=== PATIENT | female | born 1975 | race Caucasian/White ===

== ENCOUNTER 2017-02-21 08:51 | Day surgery (SDC) | payer BC ==
--- NOTE | 2017-02-05 07:40 | HP ---
CC: Dr. Muhammad * PREOPERATIVE HISTORY AND PHYSICAL: DATE OF ADMISSION: 02/18/17 This patient is scheduled for same-day surgery admission by Dr. Laguna on 02/18/17. DATE OF PREOPERATIVE HISTORY AND PHYSICAL EXAMINATION: 02/04/17 ATTENDING SURGEON: Antonio Laguna MD * (dictated by Sabrina Guy NP). CHIEF COMPLAINT: Umbilical hernia. CHIEF COMPLAINT: The patient is a 41-year-old female known to Dr. Laguna for a small umbilical hernia. Dr. Laguna saw her almost a year ago and at that time she wanted to delay surgery. She returns stating that it is now causing more discomfort and she has had to reduce the hernia at times and would like to proceed with surgical intervention. She denies any signs or symptoms to suggest incarceration or strangulation. She does suffer from chronic constipation and plans to use Colace in the perioperative period. Dr. Laguna has recommended open umbilical hernia repair with mesh as a same-day surgery procedure and has described the nature of the procedure, the rationale for the procedure, the relevant risks and benefits, and today I reviewed the typical postoperative care and recovery. The patient has had a chance to ask questions and stated that she understands the information and is satisfied with the answers given to her questions. She will sign surgical consent on the day of surgery. Her previous abdominal surgery was laparoscopic cholecystectomy in 2008. PAST MEDICAL HISTORY: Acute thyroiditis 2011 and reports that she is currently being worked up for ongoing thyroid problems and is scheduled for an ultrasound of thyroid gland tomorrow. Migraine headaches without aura. PAST SURGICAL HISTORY: Laparoscopic cholecystectomy 2008. OBSTETRIC HISTORY: 4, para 2, 2. She is up-to-date with breast exam, mammogram, pelvic, and Pap smear within the last year. Last menstrual period started 01/24/17. She is not using any type of contraception. MEDICATIONS: 1. Vitamin D3 supplement. 2. Multivitamin daily. 3. Ibuprofen as needed. ALLERGIES: No known drug allergies. FAMILY HISTORY: No known anesthesia complications, bleeding tendencies or clotting disorders. 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 She smokes 10 or fewer cigarettes per day. She rarely drinks alcohol and denies the use of other substances. REVIEW OF SYSTEMS: She denies any fevers, chills, excessive fatigue, or weight loss. Endocrine: No diabetes and is currently being worked up for thyroid symptoms. Hematologic: No easy bruising or bleeding. No history of blood transfusions. Respiratory: She is a smoker and has a dry cough and occasional wheezing. No recent upper respiratory infections. Cardiovascular: No anginal chest pain or palpitations. Gastrointestinal: No nausea or vomiting or diarrhea. She reports chronic constipation. Genitourinary: No dysuria. Musculoskeletal: No complaints of joint or back pain. Neurologic: History of migraine headaches. General: No history of deep vein thrombosis or pulmonary embolism. No previous anesthesia complications. PHYSICAL EXAMINATION GENERAL SURVEY: The patient is a 41-year-old overweight female, well developed , in no acute distress. VITAL SIGNS: Height 62 inches, weight 166 pounds, body mass index 30. Blood pressure 112/82, pulse 66 and regular, respiratory rate 16, and temperature 97.4 tympanic. HEENT: Benign. NECK: Supple. No cervical lymphadenopathy. Thyroid is palpable and somewhat enlarged. No obvious nodules. BACK: No CVA tenderness. LUNGS: Breath sounds bilaterally clear and equal. HEART: Regular rate and rhythm. No murmurs or rubs appreciated. ABDOMEN: Well healed surgical scars. Active bowel sounds. Soft, nontender throughout, nondistended. At the umbilicus, there is a small fascial defect approximately 1.5 cm in diameter with a fat containing hernia that is reducible , but mildly tender. No other obvious masses or organomegaly. PELVIC AND RECTAL EXAMS: Done within the past year, not repeated. EXTREMITIES: Warm without edema or skin ulceration. NEUROLOGIC: Alert and oriented x3. Steady gait. SKIN: Warm, dry, and intact. IMPRESSION: Umbilical hernia. PLAN: Same-day surgery admission to Dr. Laguna's service on 02/18/17 , for open umbilical hernia repair with mesh. GIORGI GUY, FLORES [id number]/[facility] #: [id number] MTDMarni
[~2017-02-21 08:51] MED LIST: Buffered Lidocaine 0.9% SYRIN* 5 ML/SYR SYRINGE INTRADERM ONE
[2017-02-21] MEDS ORDERED: Buffered Lidocaine 0.9% SYRIN* 5 ML/SYR SYRINGE ONE (08:59)
[2017-02-21] MEDS ORDERED: ceFAZolin 2 GM PREMIX (*) 2 GM/50 ML BAG IVPB ONE (09:54)
[2017-02-21] MEDS ORDERED: Bupivacaine 0.25% SDV* 30 ML ONE (09:56)
[2017-02-21] MEDS ORDERED: Lidocaine 1.5% EPI 1:200,000* 30 ML SDV ONE (09:56)
[2017-02-21] MEDS ORDERED: Midazolam* 1 MG/ML 2 ML VIAL (2 MG) ONE (10:09)
[2017-02-21] MEDS ORDERED: fentaNYL* 50 MCG/ML 2 ML VIAL (100 MCG VIAL) ONE (10:09)
[2017-02-21] MEDS ORDERED: Propofol* 10 MG/ML 20 ML BTL IV PUSH ONE (10:15)
[2017-02-21 12:28] VITALS: BP 106/92
--- NOTE | 2017-02-22 01:07 | OP ---
CC: Dr. Amador Kaur; Dr. Muhammad OPERATIVE REPORT: DATE OF OPERATION: 02/21/17 DATE OF : 75 SURGEON: Amador Kaur MD TRANSPORTATION MECHANIC: None ANESTHESIOLOGIST: Dr. Gomez. ANESTHESIA: LMAC anesthesia. PRE-OP DIAGNOSIS: Umbilical hernia. POST-OP DIAGNOSIS: Umbilical hernia. OPERATIVE PROCEDURE: Open umbilical hernia repair with mesh. DESCRIPTION OF PROCEDURE: The patient was supine on the operating room table. After adequate intrave nous sedation, compression stocking, Atul-Hugger warmer, and intravenous antibiotics, the abdomen was prepped with antiseptic and draped in a sterile fashion. A small supraumbilical incision was create d and hernia was identified. There was actually a hernia that was probably related to the previous l aparoscopic case that was just above the umbilicus and then there was a separate umbilical defect, th edwin were less than 0.5 cm apart. Both of them were reduced and the preperitoneal plane was developed and a 4.3 cm underlay patch was parachuted down underneath. It was secured at 4 quadrants and the f ascia was closed over top using 0 Vicryl. The umbilical skin was tacked back down, adipose was appro ximated with 3-0 Vicryl and skin with 5-0 Vicryl followed by Steri-Strips. She tolerated the procedu re well, was awakened and brought to recovery in good condition. There were no complications, no judy ins, no pathologic specimens. Sponge and instrument counts were correct. ESTIMATED BLOOD LOSS: 10 mL. [id number]/[facility] #: [id number]
== END 2017-02-21 12:15 | disposition home or self-care (01) ==
LOC: OR 08:51
PROVIDERS: ATTEND Surgery
DX: K42.9 Umbilical hernia without obstruction or gangrene (principal); Z68.30 Body mass index [BMI] 30.0-30.9, adult; F17.200 Nicotine dependence, unspecified, uncomplicated; E07.9 Disorder of thyroid, unspecified
CPT/HCPCS: 81025; C1781; J0690; J2250; J2704; J3010

== ENCOUNTER 2017-08-18 17:00 | Emergency (ER) | payer BC ==
[2017-08-18 17:07] VITALS: BP 104/67
--- NOTE | 2017-08-18 17:34 | UC ---
Lower Extremity/Ankle HPI - HPI Summary HPI Summary: Rolled R ankle while at home earlier today. Didn't hurt at first, now having lots of pain in ankle and top of foot and has a hard time bearing weight. No prior injury or surgery on that ankle. - History of Current Complaint Chief Complaint: UCLowerExtremity Stated Complaint: RIGHT ANKLE INJURY Time Seen by Provider: 08/18/17 17:06 Hx Obtained From: Patient Hx Last Menstrual Period: 3 weeks ?: No Onset/Duration: Sudden Onset Severity Initially: Mild Severity Currently: Moderate Pain Intensity: 8 Aggravating Factor(s): Standing, Ambulation Alleviating Factor(s): Rest Able to Bear Weight: Yes - not currently due to pain, but could for some minutes after injury - Allergies/Home Medications Allergies/Adverse Reactions: Allergies Allergy/AdvReac Type Severity Reaction Status Date / Time No Known Allergies Allergy Verified 08/18/17 17:08 Home Medications: Home Medications NK [No Home Medications Reported] 08/18/17 [History Confirmed 08/18/17] PMH/Surg Hx/FS Hx/Imm Hx Previously Healthy: Yes Other History Of: Negative For: Anticoagulant Therapy - Surgical History Surgical History: Yes Surgery Procedure, Year, and Place: CHOLECYSTECTOMY 2009 - Family History Known Family History: Negative: Blood Disorder - Social History Occupation: Employed Full-time Lives: With Family Alcohol Use: None Substance Use Type: None Smoking Status (MU): Current Every Day Smoker Type: Cigarettes Amount Used/How Often: 1/2 ppd for 24 years - Immunization History Most Recent Influenza Vaccination: 12/11/13 Most Recent Tetanus Shot: 12/28/13 Most Recent Pneumonia Vaccination: n/a Review of Systems Constitutional: Negative Skin: Negative Eyes: Negative ENT: Negative Respiratory: Negative Cardiovascular: Negative Gastrointestinal: Negative Genitourinary: Negative Motor: Negative Neurovascular: Negative Musculoskeletal: Arthralgia Neurological: Negative Psychological: Negative Is Patient Immunocompromised?: No All Other Systems Reviewed And Are Negative: Yes Physical Exam Triage Information Reviewed: Yes Appearance: Well-Appearing, Well-Nourished, Pain Distress - with R ankle movement Vital Signs: Initial Vital Signs Temp 97.1 F 08/18/17 17:04 Pulse 99 08/18/17 17:04 Resp 16 08/18/17 17:04 BP 104/67 08/18/17 17:04 Pulse Ox 99 08/18/17 17:04 Vital Signs Reviewed: Yes Eye Exam: Normal Eyes: Positive: Conjunctiva Clear ENT Exam: Normal ENT: Positive: Normal ENT inspection, Hearing grossly normal, Pharynx normal, TMs normal Dental Exam: Normal Neck exam: Normal Neck: Positive: Supple, Nontender, No Lymphadenopathy Respiratory Exam: Normal Respiratory: Positive: Chest non-tender, Lungs clear, Normal breath sounds, No respiratory distress, No accessory muscle use Cardiovascular Exam: Normal Cardiovascular: Positive: RRR, No Murmur Musculoskeletal Exam: Other - Diffuse pain over lateral ligaments and dorsum of foot, no bony tenderness on prox/distal fibula, medial malleolus, base of 5th metatarsal, or lisfranc joint. Musculoskeletal: Positive: No Edema Neurological Exam: Normal Neurological: Positive: Alert Psychological Exam: Normal Skin Exam: Normal Lower Extremity Course/Dx - Course Course Of Treatment: Discussed [place] Ankle Rules with pt, she understands and agrees w/no imaging today. Knows she can come back if things change. Encouraged f/u with PCP if she is not bearing weight normally within a few days. - Differential Dx/Diagnosis Provider Diagnoses: R ankle sprain Discharge - Sign-Out/Discharge Documenting (check all that apply): Discharge/Admit/Transfer - Discharge Plan Condition: Stable Disposition: HOME Patient Education Materials: Ankle Sprain (ED) Referrals: Fredi Muhammad MD [Primary Care Provider] - If Needed Additional Instructions: According to the [place] Ankle Rules you have a less than 2% chance of having a broken bone. Since the pain took a couple of hours to ramp up, this suggests to me that you have soft tissue (ligament) injuries in your ankle. These can be just as painful as some broken bones, and sometimes can take as long or longer to heal. It is safe to walk on your ankle wearing the splint once the pain is tolerable. You can stop wearing the splint when you are pain-free. If you need the crutches longer than a week, or if you have increasing pain or problems, please see your primary care provider for a recheck. - Billing Disposition and Condition Condition: STABLE Disposition: Home
== END 2017-08-18 17:45 | disposition home or self-care (01) ==
LOC: UCEAST 17:00
DX: S93.401A Sprain of unspecified ligament of right ankle, initial encounter (principal); X50.1XXA Overexertion from prolonged static or awkward postures, initial encounter; Y93.9 Activity, unspecified; Y92.009 Unspecified place in unspecified non-institutional (private) residence as the place of occurrence of the external cause; Z90.49 Acquired absence of other specified parts of digestive tract; F17.210 Nicotine dependence, cigarettes, uncomplicated
CPT/HCPCS: 99211; G0463